=== PATIENT | male | born 1950 | race Caucasian/White ===

== ENCOUNTER 2021-01-17 12:08 | Emergency (ER) | payer MEDICARE, OTHER ==
[~2021-01-17] VITALS: Ht 185.4 cm; Wt 136.4 kg
[~2021-01-17 12:08] MED LIST: ATOR40TA PO; CLE150C PO; ENOX120D SQ; EZET10TA6 PO; FENO145T38 PO; FURO20TA4; LACTC PO; LANTUS SQ; LINA1TAB5 PO; OXYB5TAB16 PO; PHEN-887 PO; PIOG45TA65; RAMI5CAP65 PO; SPIR1TAB PO; WARF-113 PO
[2021-01-17 12:47] VITALS: BP 136/69
[2021-01-17] MEDS ORDERED: orphenadrine citrate 60mg/2ml inj. IM ONE (14:40)
[2021-01-17] MEDS ORDERED: ketorolac tromethamine 15mg/ml inj. IM ONE (14:40)
== END 2021-01-17 15:13 | disposition home or self-care (01) ==
LOC: ER 12:09
DX: M54.5 Low back pain (principal); G89.29 Other chronic pain; E78.00 Pure hypercholesterolemia, unspecified; E11.9 Type 2 diabetes mellitus without complications; Z87.440 Personal history of urinary (tract) infections; Z86.718 Personal history of other venous thrombosis and embolism; Z98.890 Other specified postprocedural states; Z88.5 Allergy status to narcotic agent; Z88.8 Allergy status to other drugs, medicaments and biological substances; Z79.2 Long term (current) use of antibiotics; Z79.4 Long term (current) use of insulin; Z79.899 Other long term (current) drug therapy
CPT/HCPCS: 96372; 99284; J1885; J2360

== ENCOUNTER 2021-07-17 11:51 | Emergency (ER) | payer BC, MEDICARE, OTHER ==
[~2021-07-17] VITALS: Ht 185.4 cm; Wt 136.3 kg
[2021-07-17 12:11] VITALS: BP 140/70
[2021-07-17 13:03] LABS: D-DIMER 0.79 MG/L FEU (0-0.50)
[2021-07-17 15:06] LABS: ALBUMIN 3.1 G/DL (3.4-5.0); ANION GAP 8 (8-16); BLOOD UREA NITROGEN 14 MG/DL (7-18); BUN/CREATININE RATIO 15.6 (5.4-32.0); CALCIUM 8.4 MG/DL (8.5-10.1); CHLORIDE 110 MMOL/L (99-107); GLUCOSE 120 MG/DL (70-104); POTASSIUM 4.2 MMOL/L (3.5-5.1); SODIUM 144 MMOL/L (135-145); TOTAL CARBON DIOXIDE 26.1 MMOL/L (24-32); eGFR 83 ML/MIN
[2021-07-17 15:11] LABS: PARTIAL THROMBOPLASTIN TIME 26 SECONDS (22-32)
[2021-07-17 15:18] LABS: MEAN PLATELET VOLUME 9.6 FL (7.4-10.4); MONOCYTES # (AUTO) 0.4 X10'3 (0-0.9)
[2021-07-17 15:20] LABS: BASOPHILS % (AUTO) 0.3 % (0-1); EOSINOPHILS # (AUTO) 0.1 X10'3 (0-0.9); EOSINOPHILS % (AUTO) 1.7 % (0-6); HEMATOCRIT 41.5 % (42.0-52.0); HEMOGLOBIN 13.4 g/dl (14.0-17.9); LYMPHOCYTES # (AUTO) 1.9 X10'3 (1.1-4.8); LYMPHOCYTES % (AUTO) 28.3 % (21-51); MEAN CORPUSCULAR HEMOGLOBIN 30.7 PG (27.0-31.0); MEAN CORPUSCULAR HGB CONC 32.2 g/dL (33.0-36.5); MEAN CORPUSCULAR VOLUME 95.3 FL (78-98); MONOCYTES % (AUTO) 6.5 % (2-12); NEUTROPHILS # (AUTO) 4.3 X10'3 (1.8-7.7); NEUTROPHILS % (AUTO) 63.2 % (42-75); PLATELET COUNT 198 X10'3 (140-440); RED BLOOD COUNT 4.35 X10'6 (4.70-6.10); RED CELL DISTRIBUTION WIDTH 14.9 % (11.5-14.5); WHITE BLOOD COUNT 6.8 X10'3 (4.5-11.0)
[2021-07-17] MEDS ORDERED: IBUP-1984 PO (20:07)
== END 2021-07-17 20:14 | disposition home or self-care (01) ==
LOC: ER 11:54
DX: M25.511 Pain in right shoulder (principal); R60.0 Localized edema; E78.00 Pure hypercholesterolemia, unspecified; E11.9 Type 2 diabetes mellitus without complications; G89.29 Other chronic pain; M54.9 Dorsalgia, unspecified; Z88.8 Allergy status to other drugs, medicaments and biological substances; Z88.5 Allergy status to narcotic agent; Z79.899 Other long term (current) drug therapy
CPT/HCPCS: 36415; 73030; 80048; 85025; 85379; 85610; 85730; 93970; 93971; 99285

== ENCOUNTER 2022-05-11 13:37 | Emergency (ER) | payer BC ==
--- NOTE | 2022-05-11 14:34 | NUR ---
PT BIB EMS DUE TO NOT BEING ABLE TO GET INTO HIS TRUCK AFTER A 2 FT FALL. PT HAS NO COMPLAINTS, DOES NOT WANT TO BE SEEN, REFUSES TO BE TRIAGED. FAMILY IS COMING TO TRANSPORT PT HOME.
== END 2022-05-11 15:33 | disposition left against medical advice (07) ==
LOC: ER 13:37
DX: M54.9 Dorsalgia, unspecified (principal); Z53.21 Procedure and treatment not carried out due to patient leaving prior to being seen by health care provider

== ENCOUNTER 2024-10-07 12:40 | Emergency (ER) | payer OTHER ==
[~2024-10-07] VITALS: Ht 185.4 cm; Wt 159.1 kg
[~2024-10-07 12:40] MED LIST changes: -OXYB5TAB16 PO; +OXYB5TAB21 PO; -RAMI5CAP65 PO; +RAMI5CAP71 PO
[2024-10-07 13:03] VITALS: TEMP 98.2
[2024-10-07 13:57] LABS: BILIRUBIN,URINE NEGATIVE (Neg); CLARITY,URINE CLOUDY (Clear); COLOR,URINE YELLOW (Yellow); GLUCOSE, URINE >=1000 mg/dl (Neg); KETONES,URINE NEGATIVE (Neg); LEUKOCYTE ESTERASE ,URINE MODERATE (Neg); NITRITES, URINE POSITIVE (Neg); OCCULT BLOOD,URINE MODERATE (Neg); PH,URINE 8.5 (4.8-8.0); PROTEIN,URINE >=300 mg/dl (Neg); UROBILINOGEN,URINE 0.2 E.U/dL (0.2-1.0)
[2024-10-07 14:02] LABS: UA COLLECTION TYPE FOLEY CATH
[2024-10-07 14:04] LABS: BACTERIA,URINE 4+ /HPF (Neg); WBC,URINE TNTC /HPF (0-4)
[2024-10-07 14:05] LABS: MUCUS STRANDS MODERATE /LPF (Neg); SQUAMOUS EPITHELIAL CELL,UR FEW /LPF (FEW); TRANSITIONAL EPI CELLS,URINE FEW /HPF
[2024-10-07] MEDS: CefTRIAXone 1000mg IM Kit (w/lidocaine diluent) IM ONE (14:57)
[2024-10-07 14:59] LABS: BASOPHILS % (AUTO) 0.3 % (0-1); EOSINOPHILS # (AUTO) 0.1 X10'3 (0-0.9); EOSINOPHILS % (AUTO) 0.5 % (0-6); HEMATOCRIT 41.8 % (42.0-52.0); HEMOGLOBIN 14.1 g/dl (14.0-17.9); LYMPHOCYTES # (AUTO) 2.1 X10'3 (1.1-4.8); LYMPHOCYTES % (AUTO) 14.1 % (21-51); MEAN CORPUSCULAR HEMOGLOBIN 30.1 PG (27.0-31.0); MEAN CORPUSCULAR HGB CONC 33.7 g/dL (33.0-36.5); MEAN CORPUSCULAR VOLUME 89.3 FL (78-98); MEAN PLATELET VOLUME 9.2 FL (7.4-10.4); MONOCYTES % (AUTO) 6.6 % (2-12); NEUTROPHILS # (AUTO) 11.8 X10'3 (1.8-7.7); NEUTROPHILS % (AUTO) 78.5 % (42-75); PLATELET COUNT 233 X10'3 (140-440); RED BLOOD COUNT 4.68 X10'6 (4.70-6.10)
[2024-10-07] MEDS: LIDOcaine 2% jelly 6ml syringe ***for topical use only MM ONE (15:07)
[2024-10-07 15:20] LABS: ALANINE AMINOTRANSFERASE 20 U/L (12-78); ALBUMIN 2.9 G/DL (3.4-5.0); ALBUMIN/GLOBULIN RATIO 0.7 (1.1-1.5); ALKALINE PHOSPHATASE 57 IU/L (46-116); ANION GAP 11 (8-16); ASPARTATE AMINO TRANSFERASE 19 U/L (10-37); BILIRUBIN,TOTAL 0.5 MG/DL (0.1-1.0); BLOOD UREA NITROGEN 11 MG/DL (7-18); BUN/CREATININE RATIO 10.7 (10.0-20.0); CALCIUM 8.8 MG/DL (8.5-10.1); CHLORIDE 102 MMOL/L (99-107); CREATININE 1.03 MG/DL (0.60-1.10); GLUCOSE 326 MG/DL (70-104); POTASSIUM 4.1 MMOL/L (3.5-5.1); SODIUM 136 MMOL/L (135-145); TOTAL CARBON DIOXIDE 23.3 MMOL/L (24-32); TOTAL PROTEIN 7.2 G/DL (6.4-8.2); eCRCL 69 ML/MIN; eGFR 70 ML/MIN
[2024-10-07] MEDS: LidoCAINE 2% Topical Jelly 11mL syringe (UROJET) MM ONE (15:27)
[2024-10-07] MEDS ORDERED: CEFU250T95 PO (15:30)
[2024-10-07 15:47] VITALS: BP 135/75; PULSE 92; RESP 18; O2SAT 97
== END 2024-10-07 16:23 | disposition home or self-care (01) ==
LOC: ER 12:41
DX: N39.0 Urinary tract infection, site not specified (principal); T83.098A Other mechanical complication of other urinary catheter, initial encounter; E11.9 Type 2 diabetes mellitus without complications; E78.00 Pure hypercholesterolemia, unspecified; Z88.5 Allergy status to narcotic agent; Z98.890 Other specified postprocedural states; Z79.4 Long term (current) use of insulin; Y92.89 Other specified places as the place of occurrence of the external cause
CPT/HCPCS: 36415; 51702; 80053; 81001; 85025; 87077; 87088; 87186; 96372; 99284; A4314; J0696; A4358; A5200; A6250

== ENCOUNTER 2024-10-13 15:48 | Inpatient (IN) | payer BC, OTHER ==
[~2024-10-13] VITALS: Ht 185.4 cm; Wt 136.4 kg
[~2024-10-13 15:48] MED LIST changes: +CEFU250T95 PO
[2024-10-13 16:22] LABS: BASOPHILS # (AUTO) 0.1 X10'3 (0-0.2); BASOPHILS % (AUTO) 0.6 % (0-1); EOSINOPHILS # (AUTO) 0.1 X10'3 (0-0.9); EOSINOPHILS % (AUTO) 0.9 % (0-6); HEMATOCRIT 46.5 % (42.0-52.0); HEMOGLOBIN 15.5 g/dl (14.0-17.9); LYMPHOCYTES # (AUTO) 3.3 X10'3 (1.1-4.8); LYMPHOCYTES % (AUTO) 27.3 % (21-51); MEAN CORPUSCULAR HEMOGLOBIN 29.2 PG (27.0-31.0); MEAN CORPUSCULAR HGB CONC 33.4 g/dL (33.0-36.5); MEAN CORPUSCULAR VOLUME 87.5 FL (78-98); MEAN PLATELET VOLUME 9.2 FL (7.4-10.4); MONOCYTES # (AUTO) 0.9 X10'3 (0-0.9); MONOCYTES % (AUTO) 7.4 % (2-12); NEUTROPHILS # (AUTO) 7.7 X10'3 (1.8-7.7); NEUTROPHILS % (AUTO) 63.8 % (42-75); PLATELET COUNT 221 X10'3 (140-440); RED BLOOD COUNT 5.32 X10'6 (4.70-6.10); RED CELL DISTRIBUTION WIDTH 14.8 % (11.5-14.5); WHITE BLOOD COUNT 12.1 X10'3 (4.5-11.0)
[2024-10-13 16:57] LABS: ALANINE AMINOTRANSFERASE 29 U/L (12-78); ALBUMIN 3.3 G/DL (3.4-5.0); ALBUMIN/GLOBULIN RATIO 0.6 (1.1-1.5); ALKALINE PHOSPHATASE 61 IU/L (46-116); ANION GAP 16 (8-16); ASPARTATE AMINO TRANSFERASE 31 U/L (10-37); BILIRUBIN,TOTAL 0.5 MG/DL (0.1-1.0); BLOOD UREA NITROGEN 13 MG/DL (7-18); BUN/CREATININE RATIO 8.6 (10.0-20.0); CALCIUM 8.5 MG/DL (8.5-10.1); CHLORIDE 96 MMOL/L (99-107); CREATININE 1.51 MG/DL (0.60-1.10); GLUCOSE 216 MG/DL (70-104); POTASSIUM 3.6 MMOL/L (3.5-5.1); SODIUM 136 MMOL/L (135-145); TOTAL CARBON DIOXIDE 24.1 MMOL/L (24-32); TOTAL PROTEIN 8.4 G/DL (6.4-8.2); eCRCL 47 ML/MIN; eGFR 45 ML/MIN
[2024-10-13 17:00] LABS: PRO BRAIN NATRIURETIC PEPTIDE 175 PG/ML (0-450)
[2024-10-13 20:50] LABS: BILIRUBIN,URINE NEGATIVE (Neg); CLARITY,URINE SLIGHTLY CLOUDY (Clear); COLOR,URINE YELLOW (Yellow); GLUCOSE, URINE NEGATIVE (Neg); KETONES,URINE NEGATIVE (Neg); LEUKOCYTE ESTERASE ,URINE NEGATIVE (Neg); NITRITES, URINE NEGATIVE (Neg); OCCULT BLOOD,URINE NEGATIVE (Neg); PH,URINE 5.5 (4.8-8.0); PROTEIN,URINE 30 mg/dl (Neg); UROBILINOGEN,URINE 0.2 E.U/dL (0.2-1.0)
[2024-10-13 20:55] LABS: UA COLLECTION TYPE NON-SPECIFIED
[2024-10-13 20:56] LABS: BACTERIA,URINE FEW /HPF (Neg); MUCUS STRANDS FEW /LPF (Neg); RBC,URINE NONE SEEN /HPF (0-2); SQUAMOUS EPITHELIAL CELL,UR FEW /LPF (FEW); WBC,URINE 0-4 /HPF (0-4)
[2024-10-13] MEDS: normal saline 1000ML IV soln IVB ONE (23:15)
[2024-10-13] MEDS: dexamethasone sod phosphate 10mg/ml inj IV STA (23:15)
[2024-10-13] MEDS ORDERED: mag hydrox/Alum hydrox/simeth 30ml oral suspension PO PRN (23:25)
[2024-10-13] MEDS ORDERED: magnesium sulf-water 4G/100mL 100 ML IV PRN (23:25)
[2024-10-13] MEDS ORDERED: acetaminophen 325mg tablet PO PRN ×2 (23:25)
[2024-10-13] MEDS ORDERED: potassium Cl 40MEQ/1/2NS 520ml 520 ML IV PRN (23:25)
[2024-10-13] MEDS ORDERED: magnesium hydroxide 30ml (MOM) UD suspension PO PRN (23:25)
[2024-10-13] MEDS ORDERED: potassium Cl 20 mEq SR tablet PO PRN (23:25)
[2024-10-13] MEDS ORDERED: ondansetron/PF 4mg/2ml inj IV PRN (23:25)
[2024-10-13] MEDS ORDERED: magnesium sulf-water 2g/50mL 50 ML IV PRN (23:25)
[2024-10-13] MEDS ORDERED: morphine 2 MG/ML inj. syringe IV PRN (23:25)
[2024-10-13 23:59] LABS: HEMOGLOBIN A1C 8.1 % (4.5-6.2)
[2024-10-14] VITALS (8 sets, daily range): BP systolic 126–142; BP diastolic 60–78; PULSE 89–108; RESP 16–18; TEMP 97.8–98.4; O2SAT 91–97
[2024-10-14] MEDS: normal saline 1000ml 1,000 ML IV SCH (00:47)
[2024-10-14] MEDS ORDERED: normal saline 1000ml 1,000 ML IV SCH (02:25)
[2024-10-14] MEDS ORDERED: glucagon, human recombinant 1mg kit SUBCUT PRN (02:25)
[2024-10-14] MEDS ORDERED: DEXTROSE 15 GM of carb/4 tabs (each vial/BOTTLE has 4 tablets) PO PRN ×2 (02:25)
[2024-10-14] MEDS ORDERED: dextrose 50%-water 50ml dispensing syringe IV PRN ×2 (02:25)
[2024-10-14 02:40] LABS: BASOPHILS % (AUTO) 0.1 % (0-1); EOSINOPHILS % (AUTO) 0.1 % (0-6); HEMATOCRIT 45.3 % (42.0-52.0); HEMOGLOBIN 14.9 g/dl (14.0-17.9); LYMPHOCYTES # (AUTO) 1.4 X10'3 (1.1-4.8); LYMPHOCYTES % (AUTO) 9.9 % (21-51); MEAN CORPUSCULAR HGB CONC 32.9 g/dL (33.0-36.5); MEAN CORPUSCULAR VOLUME 88.2 FL (78-98); MEAN PLATELET VOLUME 9.4 FL (7.4-10.4); MONOCYTES # (AUTO) 0.3 X10'3 (0-0.9); MONOCYTES % (AUTO) 1.9 % (2-12); NEUTROPHILS # (AUTO) 12.3 X10'3 (1.8-7.7); PLATELET COUNT 205 X10'3 (140-440); RED BLOOD COUNT 5.13 X10'6 (4.70-6.10)
[2024-10-14 02:51] LABS: ALANINE AMINOTRANSFERASE 23 U/L (12-78); ALBUMIN 3.1 G/DL (3.4-5.0); ALBUMIN/GLOBULIN RATIO 0.6 (1.1-1.5); ALKALINE PHOSPHATASE 61 IU/L (46-116); ANION GAP 11 (8-16); ASPARTATE AMINO TRANSFERASE 24 U/L (10-37); BILIRUBIN,TOTAL 0.5 MG/DL (0.1-1.0); BLOOD UREA NITROGEN 17 MG/DL (7-18); CALCIUM 7.9 MG/DL (8.5-10.1); CHLORIDE 98 MMOL/L (99-107); GLUCOSE 234 MG/DL (70-104); MAGNESIUM 1.2 MG/DL (1.5-2.4); POTASSIUM 3.8 MMOL/L (3.5-5.1); SODIUM 135 MMOL/L (135-145); eCRCL 42 ML/MIN; eGFR 39 ML/MIN
[2024-10-14] MEDS: nystatin 15 GM powder TP SCH (07:54)
[2024-10-14] MEDS: heparin, porcine 5000 units/ml vial SQ SCH (07:55)
[2024-10-14] MEDS: CefTRIAXone/D5W-Rocephin 1gm 50 ML IV SCH (07:57)
[2024-10-14] MEDS: docusate sod 100mg capsule PO SCH (08:00)
[2024-10-14] MEDS: insulin glargine (Lantus) pen - multi-dose SQ ONE (11:23)
[2024-10-14] MEDS: INSULIN LISPRO 100 UNIT/ML INSULN.PEN MULTI-DOSE SQ SCH ×2 (11:25→14:11)
[2024-10-14] MEDS ORDERED: LOSA50TA64 PO (18:52)
[2024-10-14] MEDS ORDERED: TORS20TA3 PO (18:52)
[2024-10-14] MEDS ORDERED: METF-900 PO (18:52)
[2024-10-14] MEDS ORDERED: ROSU40TA89 PO (18:52)
[2024-10-14] MEDS ORDERED: POTA-192 PO (18:52)
[2024-10-14] MEDS ORDERED: CALC0.2536 PO (18:52)
[2024-10-14] MEDS ORDERED: TROS20TA4 PO (18:52)
[2024-10-14] MEDS ORDERED: GABA-530 PO (18:52)
[2024-10-14] MEDS ORDERED: POTA10CA95 PO (18:52)
[2024-10-14] MEDS ORDERED: GLIM4TAB7 PO (18:52)
[2024-10-14] MEDS ORDERED: insulin glargine (Lantus) pen - multi-dose SQ SCH ×2 (20:00→21:00)
[2024-10-14] MEDS: HYDROcodone/acetaminophen 5mg/325mg tablet PO ONE (21:02)
[2024-10-14] MEDS: insulin glargine (Lantus) pen - multi-dose SQ SCH (21:19)
[2024-10-15 05:29] LABS: BASOPHILS % (AUTO) 0.1 % (0-1); EOSINOPHILS % (AUTO) 0.1 % (0-6); HEMATOCRIT 38.1 % (42.0-52.0); HEMOGLOBIN 12.5 g/dl (14.0-17.9); LYMPHOCYTES # (AUTO) 2.1 X10'3 (1.1-4.8); LYMPHOCYTES % (AUTO) 13.8 % (21-51); MEAN CORPUSCULAR HEMOGLOBIN 28.9 PG (27.0-31.0); MEAN CORPUSCULAR HGB CONC 32.7 g/dL (33.0-36.5); MEAN CORPUSCULAR VOLUME 88.4 FL (78-98); MEAN PLATELET VOLUME 9.5 FL (7.4-10.4); MONOCYTES # (AUTO) 0.9 X10'3 (0-0.9); MONOCYTES % (AUTO) 6.1 % (2-12); NEUTROPHILS # (AUTO) 12.3 X10'3 (1.8-7.7); NEUTROPHILS % (AUTO) 79.9 % (42-75); PLATELET COUNT 179 X10'3 (140-440); RED BLOOD COUNT 4.32 X10'6 (4.70-6.10); RED CELL DISTRIBUTION WIDTH 14.8 % (11.5-14.5); WHITE BLOOD COUNT 15.3 X10'3 (4.5-11.0)
[2024-10-15] MEDS: K and/or MAG REPLACEMENT MC SCH (05:45)
[2024-10-15 05:49] LABS: ANION GAP 8 (8-16); CALCIUM 7.4 MG/DL (8.5-10.1); CHLORIDE 104 MMOL/L (99-107); CREATININE 1.24 MG/DL (0.60-1.10); GLUCOSE 243 MG/DL (70-104); MAGNESIUM 1.3 MG/DL (1.5-2.4); POTASSIUM 3.6 MMOL/L (3.5-5.1); SODIUM 139 MMOL/L (135-145); TOTAL CARBON DIOXIDE 27.5 MMOL/L (24-32); eCRCL 57 ML/MIN; eGFR 57 ML/MIN
[2024-10-15 05:50] LABS: ALANINE AMINOTRANSFERASE 18 U/L (12-78); ALBUMIN 2.5 G/DL (3.4-5.0); ALBUMIN/GLOBULIN RATIO 0.6 (1.1-1.5); ALKALINE PHOSPHATASE 48 IU/L (46-116); ASPARTATE AMINO TRANSFERASE 17 U/L (10-37); BILIRUBIN,TOTAL 0.3 MG/DL (0.1-1.0); TOTAL PROTEIN 6.5 G/DL (6.4-8.2)
[2024-10-15 06:00] VITALS: BP 143/66; PULSE 74; RESP 20; TEMP 97.1; O2SAT 90
[2024-10-15 06:16] LABS: BLOOD UREA NITROGEN 21 MG/DL (7-18); BUN/CREATININE RATIO 16.9 (10.0-20.0)
[2024-10-15 08:00] VITALS: RESP 16; O2SAT 90
[2024-10-15] MEDS ORDERED: insulin glargine (Lantus) VIAL- multi-dose SQ SCH (08:55)
[2024-10-15 10:00] VITALS: BP 123/60; PULSE 87; RESP 16; TEMP 97.7; O2SAT 97
[2024-10-15] MEDS ORDERED: warfarin 5mg tablet PO SCH (13:05)
[2024-10-15] MEDS: INSULIN LISPRO 100 UNIT/ML INSULN.PEN MULTI-DOSE SQ SCH ×2 (13:13→13:14)
[2024-10-15 14:05] LABS: INR 1.1 INR
[2024-10-15 14:11] LABS: PROTHROMBIN TIME 11.1 SECONDS (9.0-12.0)
[2024-10-15 18:30] VITALS: BP 131/66; PULSE 78; RESP 16; TEMP 98.2; O2SAT 97
[2024-10-15] MEDS: atorvastatin 20mg tablet PO SCH (21:25)
[2024-10-15] MEDS: warfarin 5mg tablet PO ONE (21:27)
[2024-10-15] MEDS: insulin glargine (Lantus) pen - multi-dose SQ SCH (21:33)
[2024-10-15 22:00] VITALS: BP 132/58; PULSE 78; RESP 16; TEMP 98.1; O2SAT 97
[2024-10-15 23:26] LABS: BILIRUBIN,URINE NEGATIVE (Neg); CLARITY,URINE CLEAR (Clear); COLOR,URINE YELLOW (Yellow); GLUCOSE, URINE NEGATIVE (Neg); KETONES,URINE NEGATIVE (Neg); LEUKOCYTE ESTERASE ,URINE NEGATIVE (Neg); NITRITES, URINE NEGATIVE (Neg); OCCULT BLOOD,URINE NEGATIVE (Neg); PH,URINE 6.5 (4.8-8.0); PROTEIN,URINE TRACE mg/dl (Neg); UROBILINOGEN,URINE 0.2 E.U/dL (0.2-1.0)
[2024-10-15 23:43] LABS: TOTAL PROTEIN,URINE RANDOM 43.3 MG/DL
[2024-10-15 23:51] LABS: UA COLLECTION TYPE FOLEY CATH
[2024-10-15 23:52] LABS: BACTERIA,URINE 1+ /HPF (Neg); RBC,URINE NONE SEEN /HPF (0-2); SQUAMOUS EPITHELIAL CELL,UR FEW /LPF (FEW); WBC,URINE 0-4 /HPF (0-4)
[2024-10-15 23:59] LABS: UA EOSINOPHILS NO EOS /HPF
[2024-10-16 05:46] LABS: BASOPHILS % (AUTO) 0.3 % (0-1); EOSINOPHILS # (AUTO) 0.1 X10'3 (0-0.9); EOSINOPHILS % (AUTO) 1.3 % (0-6); HEMATOCRIT 37.2 % (42.0-52.0); HEMOGLOBIN 12.3 g/dl (14.0-17.9); LYMPHOCYTES # (AUTO) 3.3 X10'3 (1.1-4.8); LYMPHOCYTES % (AUTO) 30.4 % (21-51); MEAN CORPUSCULAR HEMOGLOBIN 29.6 PG (27.0-31.0); MEAN CORPUSCULAR HGB CONC 33.1 g/dL (33.0-36.5); MEAN CORPUSCULAR VOLUME 89.5 FL (78-98); MEAN PLATELET VOLUME 9.7 FL (7.4-10.4); MONOCYTES # (AUTO) 0.9 X10'3 (0-0.9); MONOCYTES % (AUTO) 8.8 % (2-12); NEUTROPHILS # (AUTO) 6.4 X10'3 (1.8-7.7); NEUTROPHILS % (AUTO) 59.2 % (42-75); PLATELET COUNT 167 X10'3 (140-440); RED BLOOD COUNT 4.16 X10'6 (4.70-6.10); RED CELL DISTRIBUTION WIDTH 14.9 % (11.5-14.5); WHITE BLOOD COUNT 10.8 X10'3 (4.5-11.0)
[2024-10-16 05:55] LABS: INR 1.1 INR
[2024-10-16 06:00] VITALS: BP 129/60; PULSE 71; RESP 16; TEMP 97.8; O2SAT 96
[2024-10-16 06:02] LABS: ALANINE AMINOTRANSFERASE 20 U/L (12-78); ALBUMIN 2.7 G/DL (3.4-5.0); ALBUMIN/GLOBULIN RATIO 0.7 (1.1-1.5); ALKALINE PHOSPHATASE 41 IU/L (46-116); ANION GAP 5 (8-16); ASPARTATE AMINO TRANSFERASE 12 U/L (10-37); BILIRUBIN,TOTAL 0.2 MG/DL (0.1-1.0); BLOOD UREA NITROGEN 16 MG/DL (7-18); BUN/CREATININE RATIO 15.8 (10.0-20.0); CALCIUM 7.7 MG/DL (8.5-10.1); CHLORIDE 107 MMOL/L (99-107); CREATININE 1.01 MG/DL (0.60-1.10); GLUCOSE 220 MG/DL (70-104); MAGNESIUM 1.4 MG/DL (1.5-2.4); POTASSIUM 3.4 MMOL/L (3.5-5.1); SODIUM 141 MMOL/L (135-145); TOTAL CARBON DIOXIDE 29.3 MMOL/L (24-32); TOTAL PROTEIN 6.4 G/DL (6.4-8.2); eCRCL 70 ML/MIN; eGFR 72 ML/MIN
[2024-10-16] MEDS: magnesium Cl slow-release 64mg tablet PO PRN (09:54)
[2024-10-16] MEDS: potassium Cl 20 mEq SR tablet PO PRN (09:54)
[2024-10-16 10:00] VITALS: BP 136/66; PULSE 73; RESP 21; TEMP 97.3; O2SAT 97
[2024-10-16] MEDS ORDERED: potassium Cl 20 mEq SR tablet PO STA (12:06)
[2024-10-16] MEDS ORDERED: CEFD300C3 PO (13:38)
[2024-10-16] MEDS ORDERED: LACT1CAP26 PO (13:38)
[2024-10-16] MEDS: potassium Cl 20 mEq SR tablet PO ONE (14:35)
== END 2024-10-16 16:00 | disposition home health service (06) | DRG 698 ==
LOC: ER 15:48 → ED HOLD 23:28 → ORTHO 4S 10-14 03:15
PROVIDERS: ADMIT Internal Medicine Pulmonary Disease; ATTEND Family Medicine
DX: T83.518A Infection and inflammatory reaction due to other urinary catheter, initial encounter (principal); A41.9 Sepsis, unspecified organism; N17.0 Acute kidney failure with tubular necrosis; N39.0 Urinary tract infection, site not specified; B37.2 Candidiasis of skin and nail; Z20.822 Contact with and (suspected) exposure to COVID-19; E11.9 Type 2 diabetes mellitus without complications; E78.00 Pure hypercholesterolemia, unspecified; E86.0 Dehydration; J02.9 Acute pharyngitis, unspecified; Z79.4 Long term (current) use of insulin; Z79.899 Other long term (current) drug therapy; Z88.5 Allergy status to narcotic agent; Y84.6 Urinary catheterization as the cause of abnormal reaction of the patient, or of later complication, without mention of misadventure at the time of the procedure; Y92.9 Unspecified place or not applicable
CPT/HCPCS: 36415; 71045; 74176; 80053; 81001; 82570; 82948; 83036; 83605; 83735; 83880; 83930; 83935; 84156; 84300; 84484; 85025; 85610; 87081; 87207; 87324; 87449; 87502; 87503; 87811; 93005; 97116; 97161; 97530; 99285; A5200; A6213; A6250; A6258; A6449; G0378; J0696; J1100; J1644; J1815; J7030

== ENCOUNTER 2024-12-18 13:38 | Emergency (ER) | payer BC, OTHER ==
[~2024-12-18] VITALS: Ht 185.4 cm; Wt 136.4 kg
[~2024-12-18 13:38] MED LIST changes: -ATOR40TA PO; +CALC0.2536 PO; -CEFU250T95 PO; -CLE150C PO; -ENOX120D SQ; -EZET10TA6 PO; -FURO20TA4; +GABA-530 PO; +GLIM4TAB7 PO; +LACT1CAP26 PO; -LINA1TAB5 PO; +LOSA50TA64 PO; +METF-900 PO; +POTA-192 PO; -RAMI5CAP71 PO; +ROSU40TA89 PO; -SPIR1TAB PO; +TORS20TA3 PO; +TROS20TA4 PO; -WARF-113 PO
[2024-12-18 13:43] VITALS: TEMP 97.6
[2024-12-18 17:26] LABS: BILIRUBIN,URINE NEGATIVE (Neg); CLARITY,URINE CLOUDY (Clear); COLOR,URINE YELLOW (Yellow); GLUCOSE, URINE NEGATIVE (Neg); KETONES,URINE TRACE mg/dl (Neg); LEUKOCYTE ESTERASE ,URINE SMALL (Neg); NITRITES, URINE POSITIVE (Neg); OCCULT BLOOD,URINE TRACE-INTACT (Neg); PROTEIN,URINE 100 mg/dl (Neg); UROBILINOGEN,URINE 0.2 E.U/dL (0.2-1.0)
[2024-12-18 18:02] LABS: UA COLLECTION TYPE FOLEY CATH
[2024-12-18 18:07] LABS: AMORPHOUS PHOSPHATES 3+; BACTERIA,URINE 3+ /HPF (Neg); RBC,URINE 0-2 /HPF (0-2); SQUAMOUS EPITHELIAL CELL,UR FEW /LPF (FEW); WBC,URINE TNTC /HPF (0-4)
[2024-12-18 18:08] LABS: TRIPLE PHOSPHATE CRYST 1+ /HPF (NEGATIVE)
[2024-12-18 18:18] LABS: BASOPHILS % (AUTO) 0.2 % (0-1); EOSINOPHILS # (AUTO) 0.1 X10'3 (0-0.9); EOSINOPHILS % (AUTO) 1.3 % (0-6); HEMATOCRIT 42.3 % (42.0-52.0); HEMOGLOBIN 13.8 g/dl (14.0-17.9); LYMPHOCYTES # (AUTO) 2.7 X10'3 (1.1-4.8); LYMPHOCYTES % (AUTO) 25.4 % (21-51); MEAN CORPUSCULAR HEMOGLOBIN 29.1 PG (27.0-31.0); MEAN CORPUSCULAR HGB CONC 32.7 g/dL (33.0-36.5); MEAN CORPUSCULAR VOLUME 88.9 FL (78-98); MEAN PLATELET VOLUME 8.8 FL (7.4-10.4); MONOCYTES # (AUTO) 0.9 X10'3 (0-0.9); MONOCYTES % (AUTO) 8.1 % (2-12); PLATELET COUNT 218 X10'3 (140-440); RED BLOOD COUNT 4.75 X10'6 (4.70-6.10); RED CELL DISTRIBUTION WIDTH 15.5 % (11.5-14.5); WHITE BLOOD COUNT 10.7 X10'3 (4.5-11.0)
[2024-12-18 18:22] LABS: ALBUMIN 3.1 G/DL (3.4-5.0); ANION GAP 9 (8-16); BLOOD UREA NITROGEN 12 MG/DL (7-18); BUN/CREATININE RATIO 12.9 (10.0-20.0); CALCIUM 8.7 MG/DL (8.5-10.1); CHLORIDE 109 MMOL/L (99-107); CREATININE 0.93 MG/DL (0.60-1.10); GLUCOSE 86 MG/DL (70-104); MAGNESIUM 1.6 MG/DL (1.5-2.4); POTASSIUM 3.4 MMOL/L (3.5-5.1); SODIUM 144 MMOL/L (135-145); TOTAL CARBON DIOXIDE 26.3 MMOL/L (24-32); eCRCL 76 ML/MIN; eGFR 79 ML/MIN
[2024-12-18] MEDS ORDERED: CEPH-585 PO (19:07)
[2024-12-18] MEDS ORDERED: PHEN-716 PO (19:07)
[2024-12-18] MEDS: LidoCAINE 2% Topical Jelly 11mL syringe (UROJET) TOP ONE (19:10)
[2024-12-18] MEDS: phenazopyridine 100mg tablet PO ONE (19:27)
[2024-12-18] MEDS: CefTRIAXone 1000mg IM Kit (w/lidocaine diluent) IM ONE (19:27)
[2024-12-18 20:29] VITALS: BP 149/79; PULSE 81; RESP 17; O2SAT 95
== END 2024-12-18 21:01 | disposition home or self-care (01) ==
LOC: ER 13:39
DX: N39.0 Urinary tract infection, site not specified (principal); E11.9 Type 2 diabetes mellitus without complications; E78.00 Pure hypercholesterolemia, unspecified; G89.29 Other chronic pain; D64.9 Anemia, unspecified; Z86.718 Personal history of other venous thrombosis and embolism; Z90.49 Acquired absence of other specified parts of digestive tract; Z88.8 Allergy status to other drugs, medicaments and biological substances; Z88.5 Allergy status to narcotic agent; Z79.899 Other long term (current) drug therapy; Z79.4 Long term (current) use of insulin
CPT/HCPCS: 36415; 80048; 81001; 83605; 83735; 84145; 85025; 87040; 87088; 93005; 96372; 99284; J0696; 87077; 87186; A4338; A4340

== ENCOUNTER 2025-01-13 18:54 | Inpatient (IN) | payer BC, OTHER ==
[~2025-01-13] VITALS: Ht 185.4 cm; Wt 160.0 kg
[~2025-01-13 18:54] MED LIST changes: +PHEN-716 PO
--- NOTE | 2025-01-13 19:22 | ELECTROCARDIOGRAPH REPORT ---
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 Felipe Heredia Measurements Intervals Hood Rate: 92 P: -87 FL: 198 QRS: -62 QRSD: 167 T: 36 QT: 394 QTc: 488 Interpretive Statements Sinus or ectopic atrial rhythm RBBB and LAFB Electronically Signed On 01-13-2025 20:35:[address] Felipe Heredia Please click the below link to view image of tracing.
[2025-01-13 19:25] LABS: BASOPHILS % (AUTO) 0.5 % (0-1); EOSINOPHILS # (AUTO) 0.2 X10'3 (0-0.9); EOSINOPHILS % (AUTO) 2.6 % (0-6); HEMATOCRIT 41.1 % (42.0-52.0); HEMOGLOBIN 13.8 g/dl (14.0-17.9); LYMPHOCYTES # (AUTO) 2.2 X10'3 (1.1-4.8); LYMPHOCYTES % (AUTO) 23.7 % (21-51); MEAN CORPUSCULAR HEMOGLOBIN 29.1 PG (27.0-31.0); MEAN CORPUSCULAR HGB CONC 33.5 g/dL (33.0-36.5); MEAN CORPUSCULAR VOLUME 86.8 FL (78-98); MEAN PLATELET VOLUME 8.3 FL (7.4-10.4); MONOCYTES # (AUTO) 0.8 X10'3 (0-0.9); MONOCYTES % (AUTO) 8.2 % (2-12); PLATELET COUNT 195 X10'3 (140-440); RED BLOOD COUNT 4.74 X10'6 (4.70-6.10); RED CELL DISTRIBUTION WIDTH 14.8 % (11.5-14.5); WHITE BLOOD COUNT 9.2 X10'3 (4.5-11.0)
[2025-01-13 19:45] LABS: ALANINE AMINOTRANSFERASE 60 U/L (12-78); ALBUMIN 2.8 G/DL (3.4-5.0); ALBUMIN/GLOBULIN RATIO 0.7 (1.1-1.5); ALKALINE PHOSPHATASE 83 IU/L (46-116); ANION GAP 6 (8-16); ASPARTATE AMINO TRANSFERASE 43 U/L (10-37); BILIRUBIN,TOTAL 0.7 MG/DL (0.1-1.0); BLOOD UREA NITROGEN 14 MG/DL (7-18); BUN/CREATININE RATIO 14.1 (10.0-20.0); CALCIUM 8.8 MG/DL (8.5-10.1); CHLORIDE 103 MMOL/L (99-107); CREATININE 0.99 MG/DL (0.60-1.10); GLUCOSE 176 MG/DL (70-104); POTASSIUM 3.6 MMOL/L (3.5-5.1); PRO BRAIN NATRIURETIC PEPTIDE 125 PG/ML (0-450); SODIUM 139 MMOL/L (135-145); TOTAL CARBON DIOXIDE 30.1 MMOL/L (24-32); TOTAL PROTEIN 7.1 G/DL (6.4-8.2); eCRCL 72 ML/MIN; eGFR 73 ML/MIN
--- NOTE | 2025-01-13 20:10 | RADIOLOGY REPORT ---
Clinical History CP Comparison None Without Contrast MADISON REILLY, [id number] Technique: Single view portable semierect chest x-ray Findings: The study is obtained with inadequate inspiration, a factor that decreases the sensitivity of detecti ng bibasilar lung changes. The lungs are unremarkable. No pleural abnormality. Atherosclerotic calcification of thoracic aorta. The cardiomediastinal silhouette is otherwise unrem arkable for an AP view. No acute osseous abnormality. The imaged part of the upper abdomen is unremarkable. Impression: No evidence of acute cardiopulmonary disease This report was electronically signed by Belen Garza MD on 01/13/2025 8:06:23 PM.
[2025-01-13 21:19] LABS: BILIRUBIN,URINE NEGATIVE (Neg); CLARITY,URINE CLOUDY (Clear); COLOR,URINE YELLOW (Yellow); GLUCOSE, URINE 100 mg/dl (Neg); KETONES,URINE NEGATIVE (Neg); LEUKOCYTE ESTERASE ,URINE MODERATE (Neg); NITRITES, URINE POSITIVE (Neg); OCCULT BLOOD,URINE LARGE (Neg); PROTEIN,URINE 100 mg/dl (Neg)
[2025-01-13 21:22] LABS: UA COLLECTION TYPE FOLEY CATH
[2025-01-13 21:25] LABS: BACTERIA,URINE 2+ /HPF (Neg); MUCUS STRANDS FEW /LPF (Neg); RBC,URINE 50-100 /HPF (0-2); RENAL CELLS, URINE FEW /HPF; SQUAMOUS EPITHELIAL CELL,UR NONE SEEN /LPF (FEW); TRANSITIONAL EPI CELLS,URINE FEW /HPF; WBC,URINE TNTC /HPF (0-4)
[2025-01-13 21:26] LABS: WBC CLUMPS,URINE MODERATE /HPF (NEGATIVE)
--- NOTE | 2025-01-13 21:38 | Physician Documentation ---
History of Present Illness ~ Chief Complaint: Weakness Stated Complaint: UTI Time Seen by MD: 21:09 OK to notify your PCP?: Yes Primary Medical Doctor: PT DOES NOT WANT TO DISCLOSE PCP Source: patient Mode of Arrival: EMS Exam Limitations: no limitations HPI This is a 74-year-old male who comes in complaining of generalized weakness. I saw this gentleman with the beginning of the month on 12/18/2024 which was a pro ximally 26 days ago. The patient has a chronic indwelling Khan catheter in his wheelchair bound. The patient had heavy sediment in the Khan catheter tubing with the time in a very positive urinalysis. I placed him on antibiotics and discharge him home as at the time he seemed to well. The patient was states that is he had some issue picking up with the antibiotics due to insurance and did not get it until a few days ago. The patient now complains of generalized weakness to the point where he can not get up off the ground and had a call 911 to have EMS to help him come to the ER. You continues to complain of pain with urination though ascending the Khan catheter. He says it wallace when he urinates. He denies fevers, chills or flank pain though he was complaining of pain in his back which he states it is chronic from an old injury. Medication Reconciliation Allergies: Coded Allergies: menthol (Verified Allergy, Intermediate, RESPIRATORY DISTRESS, 10/13/24) codeine (Verified Allergy, Unknown, HIGH BLOOD PRESSURE AND HEADACHE, 10/13/24) morphine (Unverified Allergy, Unknown, 10/13/24) HALLUCINATIONS Scheduled Calcitriol (CALCITRIOL capsule), 1 CAP PO DAILY, (Reported) Fenofibrate Nanocrystallized* (Tricor*), 145 MG PO DAILY, (Reported) Gabapentin (Gabapentin), 1 CAP PO Q8H, (Reported) Glimepiride* (Amaryl*), 4 MG PO BID, (Reported) Insulin Glargine,Hum.rec.anlog* (Lantus*), 50 UNITS SQ HS, (Reported) Lactobacillus Acidophilus (ACIDOPHILUS capsule), 1 CAP PO DAILY Lactobacillus Rhamnosus (Culturelle), 1 CAP PO BID Losartan Potassium (Losartan Potassium), 1 TAB PO HS, (Reported) Oxybutynin Chloride (Oxybutynin Chloride), 1 TAB PO DAILY, (Reported) Phenazopyridine HCl (Phenazopyridine HCl), 200 MG PO TIDWM Phenazopyridine HCl (Pyridium), 1 TAB PO Q8H Potassium Chloride (Klor-Con), 1 TAB PO DAILY, (Reported) Rosuvastatin Calcium (Rosuvastatin Calcium), 1 TAB PO HS, (Reported) Torsemide (Torsemide), 1 TAB PO BID, (Reported) Trospium Chloride (Trospium Chloride), 1 TAB PO Q12H, (Reported) Scheduled PRN Metformin Hcl* (Metformin ER*), 2 TAB PO DAILY PRN for dinner, (Reported) Miscellaneous Medications Pioglitazone Hcl (Pioglitazone Hcl), (Reported) Past Medical History Past Medical History: High Cholesterol, GI Bleed, Anemia, UTI, Diabetes, Chronic Pain, Chronic Back Pain, Deep Vein Thrombosis Past Surgical History: cholecystectomy, orthopedic surgeries Patient History: (DM Type 2) Diabetes mellitus type 2 FATHER MOTHER Brother FH: stomach cancer MOTHER Alcohol Use: None Drug Use: none Lives with: Family Lives In: Home Occupation: retired Past Social History: Full CODE STATUS Physical Exam Vital Signs: Temperature: 98.2, Source: Temporal, Heart Rate: 85, Respiratory Rate: 25, BP: 140/71, Pulse Oximetry: 96, Weight: 160.000 Oxygen Flow Rate: 2.0 Pulse Oximetry Reflects: adequate oxygenation General Appearance: alert, WD/WN, ill-appearing Respiratory No accessory muscle use or retractions. Lungs are clear to auscultation all nash. Cardiovascular No rubs, gallops or murmurs. No peripheral edema, cyanosis or clubbing of the extremities Gastrointestinal No obvious distention. No tenderness to palpation x4 quadrants. Normoactive bowel sounds x4 quadrants. 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 II-XII nml as tested, normal hearing, normal speech Progress Results/Orders Reviewed/noted all lab results: Yes Results/Orders Orders - ELIDIA CHAN Ceftriaxone 2gm/D5w 50ml Bag (Rocephin 2 (01/13/25 21:30) Acetaminophen Iv (01/13/25 21:30) Normal Saline 1,000ml Iv Bolus (01/13/25 21:30) Vital Signs 01/13/25 01/13/25 19:11 19:45 Temp 98.2 Pulse 94 85 Resp 18 25 B/P (MAP) 126/78 140/71 (94) Pulse Ox 95 96 O2 Flow Rate 2.0 2.0 Laboratory Tests Test 01/13/25 19:15 01/13/25 21:07 White Blood Count 9.2 Red Blood Count 4.74 Hemoglobin 13.8 L Hematocrit 41.1 L Mean Corpuscular Volume 86.8 Mean Corpuscular Hemoglobin 29.1 Mean Corpuscular Hemoglobin Concent 33.5 Red Cell Distribution Width 14.8 H Platelet Count 195 Mean Platelet Volume 8.3 Neutrophils (%) (Auto) 65.0 Lymphocytes (%) (Auto) 23.7 Monocytes (%) (Auto) 8.2 Eosinophils (%) (Auto) 2.6 Basophils (%) (Auto) 0.5 Neutrophils # (Auto) 6.0 Lymphocytes # (Auto) 2.2 Monocytes # (Auto) 0.8 Eosinophils # (Auto) 0.2 Basophils # (Auto) 0.0 CBC Comment Sodium Level 139 Potassium Level 3.6 Chloride Level 103 Carbon Dioxide Level 30.1 Anion Gap 6 L Blood Urea Nitrogen 14 Creatinine 0.99 Estimated GFR/1.73 m2 73 BUN/Creatinine Ratio 14.1 Glucose Level 176 H Calcium Level 8.8 Total Bilirubin 0.7 Aspartate Amino Transf (AST/SGOT) 43 H Alanine Aminotransferase (ALT/SGPT) 60 Alkaline Phosphatase 83 Troponin I High Sensitivity 9 Pro-B-Type Natriuretic Peptide 125 Total Protein 7.1 Albumin 2.8 L Globulin 4.3 Albumin/Globulin Ratio 0.7 L Chemistry Comments Urine Specimen Description Khan cath Urine Color Yellow Urine Clarity Cloudy Urine pH 6.0 Urine Specific [place] 1.020 Urine Protein 100 H Urine Glucose (UA) 100 H Urine Ketones Negative Urine Occult Blood Large H Urine Nitrite Positive H Urine Bilirubin Negative Urine Urobilinogen 2.0 H Urine Leukocyte Esterase Moderate H Urine RBC 50-100 Urine WBC Tntc H Urine WBC Clumps Moderate Urine Squamous Epithelial Cells None seen Urine Transitional Epithelial Cells Few Urine Renal Cells Few Urine Bacteria 2+ Urine Mucus Few Urine Culture Indicated Indicated Volume Urine Centrifuged 8 ml Urine Comment Low volume EKG/XRAY/CT/US/VASC/MRI EKG : Intepreting Monitor?: No Additional Comment Twelve lead EKGs interpreted by me: Sinus or ectopic atrial rhythm rate of 92. 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 No ischemia Chest X-Ray : Interpreted By: self Views: 1 VIEW Additional Comments Chest x-ray one view was interpreted by me: No acute disease process. The cardiac silhouette and lung nash are within normal limits. No obvious bony abnormality. Soft tissues are unremarkable. Medical Decision Making Findings The patient was vital signs and lab work were all within normal limits. There was nothing to indicate sepsis at this time however his urinalysis isn't much over the last time and in some respects worse has not now that were protein in the urine which could indicate a pyelonephritis. The culture from last time grew out Proteus mirabilis susceptible to all antibiotics tested. I started the patient on 2 g Rocephin IV gave him a g of Tylenol IV as well as a L of fluids as the states he has not been eating or drinking very much. The patient was very weak and you going to believe this is attributed to his urinalysis. The patient did start on some oral antibiotics in his failed outpatient therapy. At this point the patient will require admission and I will contact the hospitalist for admission. Additional Information Urinary tract infection. Urosepsis. Generalized weakness. Departure Impression: Primary Impression: Urinary tract infection Additional Impressions: Pyelonephritis Generalized weakness Referrals: NO PRIMARY CARE PROVIDER (PCP) ELIDIA CHAN Jan 13, 2025 21:38
[2025-01-13] MEDS ORDERED: iohexol 300mg/ml 100ml inj. ONE (21:48)
[2025-01-13] MEDS ORDERED: magnesium Cl slow-release 64mg tablet PO PRN (22:00)
[2025-01-13] MEDS ORDERED: ondansetron/PF 4mg/2ml inj IV PRN (22:00)
[2025-01-13] MEDS ORDERED: morphine 2 MG/ML inj. syringe IV PRN ×2 (22:00)
[2025-01-13] MEDS ORDERED: potassium Cl 40MEQ/1/2NS 520ml 520 ML IV PRN (22:00)
[2025-01-13] MEDS ORDERED: potassium Cl 20 mEq SR tablet PO PRN (22:00)
[2025-01-13] MEDS ORDERED: magnesium hydroxide 30ml (MOM) UD suspension PO PRN (22:00)
[2025-01-13] MEDS ORDERED: mag hydrox/Alum hydrox/simeth 30ml oral suspension PO PRN (22:00)
[2025-01-13] MEDS ORDERED: magnesium sulf-water 2g/50mL 50 ML IV PRN (22:00)
[2025-01-13] MEDS ORDERED: magnesium sulf-water 4G/100mL 100 ML IV PRN (22:00)
[2025-01-13] MEDS: normal saline 1000ml 1,000 ML IV ONE (22:23)
[2025-01-13] MEDS: acetaminophen 1,000mg/100ml IV 100 ML IV ONE (22:23)
[2025-01-13] MEDS: CefTRIAXone 2gm/D5W 50ml BAG 50 ML IV ONE (23:25)
[2025-01-14] VITALS (10 sets, daily range): BP systolic 137–155; BP diastolic 63–71; PULSE 72–89; RESP 18–22; TEMP 97.8–98.4; O2SAT 94–98
[2025-01-14] MEDS ORDERED: dextrose 50%-water 50ml dispensing syringe IV PRN ×2 (00:45)
[2025-01-14] MEDS ORDERED: DEXTROSE 15 GM of carb/4 tabs (each vial/BOTTLE has 4 tablets) PO PRN ×2 (00:45)
[2025-01-14] MEDS ORDERED: glucagon, human recombinant 1mg kit SUBCUT PRN (00:45)
--- NOTE | 2025-01-14 01:06 | HISTORY AND PHYSICAL-Residence ---
History & Physical Providers to CC Resident Creating Document: MAHAD COUGHLIN CC: JACQUI NGUYEN MD ~ History of Present Illness Primary Medical Doctor: PT DOES NOT WANT TO DISCLOSE PCP Reason for Admit\Complaint: Generalized weakness History of Present Illness Patient is a 74-year-old male with history of type 2 diabetes, hypertension, hyperlipidemia, RADHA, chronic back pain and incontinence with long-term Khan catheter who came to the ED due to generalized weakness. Patient reports that for the past 3 weeks he has been experiencing increasing weakness, which has made it increasingly difficult to get out of his bed or recliner, he reports that today when trying to go from his bed to his recliner he fell on the floor and was unable to get up. In addition, patient reports increasing shortness of breath on exertion. Symptoms are accompanied by subjective fevers and chills. He reports that he has also been experiencing intermittent left-sided chest pain, which happens at on exertion and improves at rest, 9/10 in intensity, lasting 30 minutes to 2 hours at a time. Patient reports that he came to the hospital 3 weeks ago and he was prescribed antibiotics for an UTI, however, due to insurance issues he was not able to take them. Of note, patient has had a Khan catheter for a long time and he reports that it is not changed as often as it should. However, it was changed last time he was here in the hospital 3 weeks ago. Allergies: Coded Allergies: menthol (Verified Allergy, Intermediate, RESPIRATORY DISTRESS, 10/13/24) codeine (Verified Allergy, Unknown, HIGH BLOOD PRESSURE AND HEADACHE, 10/13/24) morphine (Unverified Allergy, Unknown, 10/13/24) HALLUCINATIONS Home Medications Home Medications Active Pyridium (Phenazopyridine HCl) 200 Mg Tablet 1 Tab PO Q8H 3 Days Culturelle (Lactobacillus Rhamnosus) 10 Billion Cell Capsule 1 Cap PO BID 30 Days ACIDOPHILUS capsule (Lactobacillus Acidophilus) 1 Cap Capsule 1 Cap PO DAILY 30 Days Phenazopyridine HCl 100 Mg Tablet 200 Mg PO TIDWM 5 Days Reported Gabapentin 100 Mg Capsule 1 Cap PO Q8H 30 Days CALCITRIOL capsule (Calcitriol) 0.25 Mcg Capsule 1 Cap PO DAILY 30 Days Trospium Chloride 20 Mg Tablet 1 Tab PO Q12H 30 Days Torsemide 20 Mg Tablet 1 Tab PO BID 30 Days Metformin ER* (Metformin HCl) 500 Mg Tab.sr.24h 2 Tab PO DAILY PRN Losartan Potassium 50 Mg Tablet 1 Tab PO HS 30 Days Rosuvastatin Calcium 40 Mg Tablet 1 Tab PO HS 30 Days Klor-Con (Potassium Chloride) 10 Meq Tab.prt.sr 1 Tab PO DAILY 30 Days Amaryl* (Glimepiride) 4 Mg Tablet 4 Mg PO BID Pioglitazone Hcl 45 Mg Tablet Lantus* (Insulin Glargine) 100 Unit/1 Ml Vial 50 Units SQ HS Tricor* (Fenofibrate) 145 Mg Tablet 145 Mg PO DAILY Oxybutynin Chloride 5 Mg Tablet 1 Tab PO DAILY 30 Days Past Medical History Past Medical History Type 2 diabetes, hypertension, hyperlipidemia, RADHA, chronic back pain and incontinence with long-term Khan catheter Past Surgical History Surgical History Comment Back surgery x4 (laminectomy) Cataracts Family History Family History: (DM Type 2) Diabetes mellitus type 2 FATHER MOTHER Brother FH: stomach cancer MOTHER Past Social History Smoking: Non-Smoker Alcohol Use: None Drug Use: None Lives with: Spouse Lives In: Home Occupation: retired Past Social History: Full CODE STATUS ROS ROS All systems were reviewed except for pertinent positives mentioned in HPI Musculoskeletal: Reports: back pain Exam Vitals: Vital Signs Date Time Temp Pulse Resp B/P (MAP) Pulse Ox O2 Delivery O2 Flow Rate FiO2 01/14/25 00:19 80 20 152/67 (95) 98 0 01/13/25 19:11 98.2 General: General: Obese habitus, awake, alert oriented to place, time, and person HEENT: No pallor present, no icterus, moist mucous membranes Neck: No masses and tenderness Resp: Unlabored. Lungs clear to auscultation bilaterally. Heart: Regular Rate and rhythm, normal S1 and S2 without murmur, rub or gallop Abdomen: Soft and with mild diffuse tenderness to palpation, no organomegaly, no guarding and rigidity, bowel sounds present Male genitalia: Khan catheter in place Neuro: No weakness in the upper and lower limb muscles, power of the muscles 3/5 bilateral upper and lower muscles, knee reflex present bilaterally. Cranial nerves intact Extremities: Chronic static changes in lower extremities. No cyanosis,clubbing or edema Skin: Warm and Dry. No lesions Diagnostic Data Last Recorded Lab Results: 01/14/25 0407 01/14/25 0407 Advance Care Planning Advanced Care plannin - 30 Minutes Additional Plan Patient is a 74-year-old male with history of type 2 diabetes, hypertension, hyperlipidemia, RADHA, chronic back pain and incontinence with long-term Khan catheter who came to the ED due to generalized weakness. Catheter associated UTI, POA Microscopic hematuria Proteinuria Possible diabetic nephropathy Patient has had a Khan catheter for a long time, apparently placed due to incontinence Has been experiencing increasing weakness and inability to walk White count is normal, will obtain procalcitonin UA shows significant amount of WBC, leukocyte esterase, nitrites, as well as hematuria and proteinuria BUN and creatinine unremarkable Culture from a few weeks ago showed pansensitive Proteus. Pending new culture Started on Rocephin in ED. Will continue Will obtain kidney ultrasound Chest pain Likely stable angina Troponins are unremarkable ProBNP is unremarkable EKG shows bundle branch block Will monitor Generalized weakness Severe deconditioning Patient will likely require rehab upon discharge PT eval and consult in place Type 2 diabetes Possible diabetic nephropathy A1c from 09/2024 was 8.1. Pending repeated Started on Lantus 10 units, lispro 2 units, low-dose supplemental. Adjust as necessary and/or according to home dose once med rec is completed Hypertension Hyperlipidemia Chronic back pain RADHA Continue home meds. Pending med rec Pain control with morphine p.r.n. Patient reports that he had palate surgery along with tonsillectomy and no longer requires CPAP Code Status: Full code DVT prophylaxis: Heparin Analgesia/sedation: Morphine Nutrition: Carb controlled PT: Ordered Prognosis: Guarded Disposition: Admit to ortho/neuro. Continue medical management Mahad Gore MD Internal Medicine Resident PGY-1 Date of Service: Jan 14, 2025 Billing Provider: JACQUI NGUYEN MD Common Visit Codes: [id number] INP/OBS CARE (HIGH) Assessment/Plan Assessment I evaluated the patient with the help of residents . Discussed the case with them. Reviewed notes by MAHAD Benavides. Agree with this assessment and plans. I also reviewed the patient's records, notes by other providers, radiology, and other labs. Patient currently has UTI likely secondary to a Proteus species based on prior cultures. Continue antibiotics as now. MAHAD COUGHLIN Jan 14, 2025 01:06 JACQUI NGUYEN MD Jan 14, 2025 05:40
[2025-01-14 04:48] LABS: BASOPHILS % (AUTO) 0.3 % (0-1); EOSINOPHILS # (AUTO) 0.2 X10'3 (0-0.9); EOSINOPHILS % (AUTO) 2.2 % (0-6); HEMATOCRIT 37.6 % (42.0-52.0); HEMOGLOBIN 12.4 g/dl (14.0-17.9); LYMPHOCYTES # (AUTO) 2.2 X10'3 (1.1-4.8); LYMPHOCYTES % (AUTO) 21.4 % (21-51); MEAN CORPUSCULAR HEMOGLOBIN 28.8 PG (27.0-31.0); MEAN CORPUSCULAR HGB CONC 33.1 g/dL (33.0-36.5); MEAN PLATELET VOLUME 8.3 FL (7.4-10.4); MONOCYTES # (AUTO) 0.9 X10'3 (0-0.9); MONOCYTES % (AUTO) 9.1 % (2-12); NEUTROPHILS # (AUTO) 6.9 X10'3 (1.8-7.7); PLATELET COUNT 165 X10'3 (140-440); RED BLOOD COUNT 4.32 X10'6 (4.70-6.10); RED CELL DISTRIBUTION WIDTH 14.7 % (11.5-14.5); WHITE BLOOD COUNT 10.2 X10'3 (4.5-11.0)
[2025-01-14 05:14] LABS: ALANINE AMINOTRANSFERASE 52 U/L (12-78); ALBUMIN 2.4 G/DL (3.4-5.0); ALBUMIN/GLOBULIN RATIO 0.6 (1.1-1.5); ALKALINE PHOSPHATASE 69 IU/L (46-116); ANION GAP 4 (8-16); ASPARTATE AMINO TRANSFERASE 37 U/L (10-37); BILIRUBIN,TOTAL 0.5 MG/DL (0.1-1.0); BLOOD UREA NITROGEN 13 MG/DL (7-18); BUN/CREATININE RATIO 15.3 (10.0-20.0); CALCIUM 8.1 MG/DL (8.5-10.1); CHLORIDE 106 MMOL/L (99-107); CHOL/HDL RATIO 3.6 (0.00-4.99); CHOLESTEROL 125 MG/DL (0-200); CREATININE 0.85 MG/DL (0.60-1.10); GLUCOSE 117 MG/DL (70-104); HDL CHOLESTEROL 35 MG/DL (35-60); LDL CHOLESTEROL 75 MG/DL (50-100); MAGNESIUM 1.6 MG/DL (1.5-2.4); POTASSIUM 3.3 MMOL/L (3.5-5.1); SODIUM 141 MMOL/L (135-145); TOTAL CARBON DIOXIDE 30.8 MMOL/L (24-32); TOTAL PROTEIN 6.2 G/DL (6.4-8.2); TRIGLYCERIDES 85 MG/DL (20-135); eCRCL 84 ML/MIN; eGFR 88 ML/MIN
[2025-01-14 05:32] LABS: HEMOGLOBIN A1C 6.1 % (4.5-6.2)
[2025-01-14] MEDS: INSULIN LISPRO 100 UNIT/ML INSULN.PEN MULTI-DOSE SQ SCH (07:00)
[2025-01-14] MEDS: K and/or MAG REPLACEMENT MC SCH (08:00)
[2025-01-14] MEDS ORDERED: docusate sod 100mg capsule PO SCH (08:00)
[2025-01-14] MEDS ORDERED: INSULIN LISPRO 100 UNIT/ML INSULN.PEN MULTI-DOSE SQ SCH (09:00)
--- NOTE | 2025-01-14 09:04 | RADIOLOGY REPORT ---
INDICATION: Hematuria TECHNIQUE: Multiple real-time sonographic images of the kidneys and bladder were obtained. COMPARISON: None FINDINGS: Evaluation is extremely limited due to body habitus and obscuration from bowel gas. The right kidney measures 12.0 cm in length, which is normal in size. There is normal echogenicity of the right kidney. No hydronephrosis. Left kidney is not well visualized due to obscuration from bowel gas. IMPRESSION: Evaluation is extremely limited due to body habitus and obscuration from bowel gas.
[2025-01-14] MEDS ORDERED: CEFU500T66 PO (09:55)
[2025-01-14] MEDS ORDERED: SEMA2PEN SUBCUT (09:56)
[2025-01-14] MEDS ORDERED: TRAM50TA2 PO (09:57)
[2025-01-14] MEDS: potassium Cl 20 mEq SR tablet PO PRN (11:41)
[2025-01-14] MEDS: heparin, porcine 5000 units/ml vial SQ SCH (11:42)
[2025-01-14] MEDS ORDERED: insulin glargine (Lantus) pen - multi-dose SQ SCH (21:00)
--- NOTE | 2025-01-14 21:07 | PROGRESS NOTE ---
Daily Progress Note Providers to CC ~ Antibiotic Timeout Antibiotic Ordered?: Yes Subjective Patient is seen in presence of his both are very poor historian. Off and on patient gets pain over lower belly he has chronic catheter placed which is chronic no other concerns Objective Vital Signs Date Time Temp Pulse Resp B/P (MAP) Pulse Ox O2 Delivery O2 Flow Rate FiO2 01/14/25 15:52 98.2 87 19 147/71 (96) 98 Nasal Cannula 2.5 obtained kidney ultrasoundMPRESSION: Evaluation is extremely limited due to body habitus and obscuration from bowel gas. Result Diagram: 01/14/2540601/14/25406 General-patient not in any acute distress, alert awake oriented, chronically ill-appearing, morbidly obese HEENT-atraumatic normocephalic, neck supple without elevated JVD, no thyromegaly or carotid bruit. No lymphadenopathy bilaterally. Eyes-no icterus or pallor seen in eyes Chest-clear to auscultation bilaterally, breathing nonlabored no tachypnea, no wheezing, no crepitation, no crackles. Heart-S1-S2 normal, regular heart rate no murmur Abdomen bowel sounds positive on auscultation, soft nondistended nontender no guarding, no rigidity Genital-Khan catheter in place Skin no active skin rash Neurology-grossly intact, nonfocal alert awake oriented Extremity- no pedal edema able to move all 4 extremities Psychiatry - patient is not confused or agitated cooperated during physical examination Problem\Assessment\Plan Patient is a 74-year-old male with history of type 2 diabetes, hypertension, hyperlipidemia, RADHA, chronic back pain and incontinence with long-term Khan catheter who came to the ED due to generalized weakness. Catheter associated UTI, POA Microscopic hematuria Proteinuria Possible diabetic nephropathy Patient has had a Khan catheter for a long time, apparently placed due to incontinence Has been experiencing increasing weakness and inability to walk White count is normal, will obtain procalcitonin UA shows significant amount of WBC, leukocyte esterase, nitrites, as well as hematuria and proteinuria BUN and creatinine unremarkable Culture from a few weeks ago showed pansensitive Proteus. Started on Rocephin in ED. Will continue Chest pain Likely stable angina Troponins are unremarkable ProBNP is unremarkable EKG shows bundle branch block Will monitor Generalized weakness Severe deconditioning Patient will likely require rehab upon discharge PT eval and consult in place Type 2 diabetes Possible diabetic nephropathy A1c from 09/2024 was 8.1. Current hemoglobin A1c 6.1 On hypo and hyperglycemic protocol Hypertension Hyperlipidemia Chronic back pain RADHA Continue home meds. Pending med rec Pain control with morphine p.r.n. Patient reports that he had palate surgery along with tonsillectomy and no longer requires CPAP Code Status: Full code DVT prophylaxis: Heparin Analgesia/sedation: Morphine Nutrition: Carb controlled PT: Ordered Patient's current condition is guarded we will continue to follow patient in AM . Date of Service: Jan 14, 2025 Billing Provider: SHELBY VALDES MD Common Visit Codes: [id number] INP/OBS CARE(HIGH) SHELBY VALDES MD Jan 14, 2025 21:07
[2025-01-14] MEDS: CefTRIAXone 2gm/D5W 50ml BAG 50 ML IV SCH (22:30)
[2025-01-15 06:28] LABS: BASOPHILS % (AUTO) 0.4 % (0-1); EOSINOPHILS # (AUTO) 0.3 X10'3 (0-0.9); HEMATOCRIT 37.2 % (42.0-52.0); HEMOGLOBIN 12.3 g/dl (14.0-17.9); LYMPHOCYTES # (AUTO) 2.2 X10'3 (1.1-4.8); LYMPHOCYTES % (AUTO) 27.5 % (21-51); MEAN CORPUSCULAR HEMOGLOBIN 28.7 PG (27.0-31.0); MEAN CORPUSCULAR VOLUME 86.9 FL (78-98); MEAN PLATELET VOLUME 8.6 FL (7.4-10.4); MONOCYTES # (AUTO) 0.7 X10'3 (0-0.9); MONOCYTES % (AUTO) 9.4 % (2-12); NEUTROPHILS # (AUTO) 4.6 X10'3 (1.8-7.7); NEUTROPHILS % (AUTO) 58.7 % (42-75); PLATELET COUNT 177 X10'3 (140-440); RED BLOOD COUNT 4.28 X10'6 (4.70-6.10); RED CELL DISTRIBUTION WIDTH 14.9 % (11.5-14.5); WHITE BLOOD COUNT 7.9 X10'3 (4.5-11.0)
[2025-01-15 06:34] LABS: ALANINE AMINOTRANSFERASE 41 U/L (12-78); ALBUMIN 2.5 G/DL (3.4-5.0); ALBUMIN/GLOBULIN RATIO 0.6 (1.1-1.5); ALKALINE PHOSPHATASE 68 IU/L (46-116); ANION GAP 6 (8-16); ASPARTATE AMINO TRANSFERASE 26 U/L (10-37); BILIRUBIN,TOTAL 0.4 MG/DL (0.1-1.0); BLOOD UREA NITROGEN 10 MG/DL (7-18); BUN/CREATININE RATIO 12.7 (10.0-20.0); CALCIUM 8.7 MG/DL (8.5-10.1); CHLORIDE 108 MMOL/L (99-107); CREATININE 0.79 MG/DL (0.60-1.10); GLUCOSE 136 MG/DL (70-104); MAGNESIUM 1.6 MG/DL (1.5-2.4); POTASSIUM 3.6 MMOL/L (3.5-5.1); SODIUM 143 MMOL/L (135-145); TOTAL CARBON DIOXIDE 28.9 MMOL/L (24-32); TOTAL PROTEIN 6.5 G/DL (6.4-8.2); eCRCL 90 ML/MIN; eGFR > 90 ML/MIN
[2025-01-15 07:30] VITALS: BP 152/70; PULSE 74; RESP 15; TEMP 98.5; O2SAT 96
[2025-01-15] MEDS: losartan 50mg tablet PO SCH (08:15)
[2025-01-15 10:00] VITALS: BP 147/63; PULSE 70; RESP 18; TEMP 97; O2SAT 95
--- NOTE | 2025-01-15 13:05 | PROGRESS NOTE ---
Daily Progress Note Providers to CC ~ Antibiotic Timeout Antibiotic Ordered?: Yes If Yes, Indications: UTI Subjective No acute events overnight. Patient examined at bedside. No new complaints, not in acute distress. Patient denies chest pain, sob, palpitations, abdominal pain, n/v/d. Urine culture resulted for gram negative chandler, awaiting sensitivities. Vss, las unremarkable. Objective Vital Signs Date Time Temp Pulse Resp B/P (MAP) Pulse Ox O2 Delivery O2 Flow Rate FiO2 01/15/25 08:15 74 01/15/25 07:30 98.5 15 152/70 (97) 96 Nasal Cannula 3.0 Result Diagram: 01/15/2552401/15/25524 Physical Exam General: Generalized weakness, A&Ox 3, NAD, morbidly obese HEENT: Normocephalic, PERRLA Neck: Supple, trachea midline, no JVD Chest: Clear to auscultation bilaterally Cardiovascular: RRR, S1&S2 GI: Soft and nontender Extremities: No cyanosis/clubbing/or edema SAMPLE BUILDER: No focal deficits Musculoskeletal: No paraspinal muscle tenderness, no muscle spasm Skin: Warm and intact Problem\Assessment\Plan Patient is a 74-year-old male with history of type 2 diabetes, hypertension, hyperlipidemia, RADHA, chronic back pain and incontinence with long-term Khan catheter who came to the ED due to generalized weakness. # Catheter associated UTI- POA -chronic Khan catheter, incontinence; urologist at [facility] -urine culture positive for gram negative chandler, continued on Rocephin # Chest pain, likely stable angina -Troponins are unremarkable, pBNP is unremarkable, EKG unremarkable # Generalized weakness # Severe deconditioning -pending rehab # NIDDM -A1c from 09/2024 was 8.1. Current hemoglobin A1c 6.1 -on hypo and hyperglycemic protocol # Hypertension # Hyperlipidemia # Chronic back pain # RADHA -continue home med, prn analgesics -patient reports that he had palate surgery along with tonsillectomy and no longer requires CPAP Code Status: Full code DVT/VTE prophylaxis: Heparin Date of Service: January 15, 2025 Billing Provider: HANG DO Common Visit Codes: [id number] INP/OBS CARE(HIGH) HANG DO January 15, 2025 13:05
[2025-01-15] MEDS: aspirin 81mg, enteric-coated 1 TAB TABLET.DR PO ONE (14:31)
[2025-01-15] MEDS: losartan 50mg tablet PO ONE (14:33)
[2025-01-15 14:38] VITALS: RESP 18; O2SAT 95
[2025-01-15 18:30] VITALS: BP 116/59; PULSE 75; RESP 20; TEMP 97.2; O2SAT 96
[2025-01-15] MEDS: atorvastatin 20mg tablet PO SCH (20:53)
[2025-01-15 22:00] VITALS: BP 145/75; PULSE 78; RESP 18; TEMP 98.4; O2SAT 97
[2025-01-15] MEDS: acetaminophen 325mg tablet PO PRN (22:08)
[2025-01-16 04:46] LABS: BASOPHILS % (AUTO) 0.3 % (0-1); EOSINOPHILS # (AUTO) 0.4 X10'3 (0-0.9); EOSINOPHILS % (AUTO) 5.1 % (0-6); HEMOGLOBIN 12.7 g/dl (14.0-17.9); LYMPHOCYTES # (AUTO) 2.5 X10'3 (1.1-4.8); LYMPHOCYTES % (AUTO) 28.6 % (21-51); MEAN CORPUSCULAR HEMOGLOBIN 28.4 PG (27.0-31.0); MEAN CORPUSCULAR HGB CONC 32.5 g/dL (33.0-36.5); MEAN CORPUSCULAR VOLUME 87.4 FL (78-98); MEAN PLATELET VOLUME 8.8 FL (7.4-10.4); MONOCYTES # (AUTO) 0.8 X10'3 (0-0.9); MONOCYTES % (AUTO) 9.4 % (2-12); NEUTROPHILS # (AUTO) 4.9 X10'3 (1.8-7.7); NEUTROPHILS % (AUTO) 56.6 % (42-75); PLATELET COUNT 202 X10'3 (140-440); RED BLOOD COUNT 4.46 X10'6 (4.70-6.10); RED CELL DISTRIBUTION WIDTH 14.7 % (11.5-14.5); WHITE BLOOD COUNT 8.7 X10'3 (4.5-11.0)
[2025-01-16 05:12] LABS: ALANINE AMINOTRANSFERASE 40 U/L (12-78); ALBUMIN 2.8 G/DL (3.4-5.0); ALBUMIN/GLOBULIN RATIO 0.7 (1.1-1.5); ALKALINE PHOSPHATASE 67 IU/L (46-116); ANION GAP 8 (8-16); ASPARTATE AMINO TRANSFERASE 19 U/L (10-37); BILIRUBIN,TOTAL 0.3 MG/DL (0.1-1.0); BLOOD UREA NITROGEN 13 MG/DL (7-18); BUN/CREATININE RATIO 13.8 (10.0-20.0); CHLORIDE 105 MMOL/L (99-107); CREATININE 0.94 MG/DL (0.60-1.10); GLUCOSE 200 MG/DL (70-104); MAGNESIUM 1.6 MG/DL (1.5-2.4); POTASSIUM 3.5 MMOL/L (3.5-5.1); SODIUM 141 MMOL/L (135-145); TOTAL CARBON DIOXIDE 28.5 MMOL/L (24-32); TOTAL PROTEIN 7.1 G/DL (6.4-8.2); eCRCL 76 ML/MIN; eGFR 78 ML/MIN
[2025-01-16 06:00] VITALS: BP 149/71; PULSE 67; RESP 18; TEMP 97.8; O2SAT 99
[2025-01-16] MEDS: aspirin 81mg, enteric-coated 1 TAB TABLET.DR PO SCH (09:48)
[2025-01-16] MEDS: losartan 50mg tablet PO SCH (09:48)
[2025-01-16 10:00] VITALS: BP 144/66; PULSE 73; RESP 17; TEMP 98.2; O2SAT 96
[2025-01-16] MEDS ORDERED: insulin glargine (Lantus) VIAL- multi-dose SQ ONE (10:45)
[2025-01-16] MEDS: insulin glargine (Lantus) pen - multi-dose SQ ONE (10:50)
[2025-01-16 11:00] VITALS: RESP 18
--- NOTE | 2025-01-16 11:59 | DISCHARGE SUMMARY ---
Discharge Summary Providers to CC ~ Discharge Summary Admission Diagnosis: CATHETER ASSOCIATED UTI Hospital Course DATE OF ADMISSION: 01/13/25 DATE OF DISCHARGE: 01/16/25 Discharge Diagnosis\\Comment: Catheter associated UTI- POA Chest pain, likely stable angina Acute hypoxic respiratory failure- POA Severe deconditioning NIDDM Hypertension Hyperlipidemia Chronic back pain RADHA Generalized weakness Class III obesity Operations\\Procedures: None Consultants: None Complications: None Condition on DC: Stable for transfer Discharge Summary: History of Present Illness From H&P: "Patient is a 74-year-old male with history of type 2 diabetes, hypertension, hyperlipidemia, RADHA, chronic back pain and incontinence with long- term Khan catheter who came to the ED due to generalized weakness. Patient reports that for the past 3 weeks he has been experiencing increasing weakness, which has made it increasingly difficult to get out of his bed or recliner, he reports that today when trying to go from his bed to his recliner he fell on the floor and was unable to get up. In addition, patient reports increasing shortness of breath on exertion. Symptoms are accompanied by subjective fevers and chills. He reports that he has also been experiencing intermittent left- sided chest pain, which happens at on exertion and improves at rest, 9/10 in intensity, lasting 30 minutes to 2 hours at a time. Patient reports that he came to the hospital 3 weeks ago and he was prescribed antibiotics for an UTI, however, due to insurance issues he was not able to take them. Of note, patient has had a Khan catheter for a long time and he reports that it is not changed as often as it should. However, it was changed last time he was here in the hospital 3 weeks ago." Hospital Course Diagnostic findings were notable for urinalysis indicative of urinary tract infection. Pertinent negative findings were unremarkable renal ultrasound, negative chest x-ray, negative procal, leukocytosis, vss. Patient was treated with empirical antibiotics and intravenous fluids. Urine culture and sensitivity resulted and antibiotic regimen was changed accordingly. Patient did not experience further complications throughout the entire hospital stay. Patient was seen and examined on the day of discharge. All labs, diagnostic workups, discharge plan discussed with patient in details during visit before discharge. All questions and concerns answered to the best of my professional knowledge. Patient is to be discharged to rehab for continued management and to follow-up with PCP and his urologist at [facility]. 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
[2025-01-16] MEDS ORDERED: ciprofloxacin lact 400MG/200ML 200 ML IV ONE (12:00)
[2025-01-16] MEDS ORDERED: JUVEN Smoothie Arginine/Glut./Ca2+Bmb (Juven 19.3pkt) 240ml cup PO SCH (12:30)
[2025-01-16] MEDS ORDERED: ciprofloxacin lact 400MG/200ML 200 ML IV SCH (20:00)
[2025-01-17] MEDS ORDERED: insulin glargine (Lantus) pen - multi-dose SQ SCH (08:00)
== END 2025-01-16 12:15 | DRG 698 ==
LOC: ER 18:55 → ED HOLD 22:04 → EDBEDREQ 23:44 → ORTHO 4S 01-14 00:45
PROVIDERS: ADMIT Internal Medicine Critical Care Medicine; ATTEND Internal Medicine
DX: T83.511A Infection and inflammatory reaction due to indwelling urethral catheter, initial encounter (principal); J96.01 Acute respiratory failure with hypoxia; N12 Tubulo-interstitial nephritis, not specified as acute or chronic; Z68.42 Body mass index [BMI] 45.0-49.9, adult; I20.89 Other forms of angina pectoris; I10 Essential (primary) hypertension; G47.33 Obstructive sleep apnea (adult) (pediatric); Y84.6 Urinary catheterization as the cause of abnormal reaction of the patient, or of later complication, without mention of misadventure at the time of the procedure; G89.29 Other chronic pain; M54.9 Dorsalgia, unspecified; E66.813 Obesity, class 3; E78.00 Pure hypercholesterolemia, unspecified; E11.9 Type 2 diabetes mellitus without complications; Z88.5 Allergy status to narcotic agent; Z88.8 Allergy status to other drugs, medicaments and biological substances; Z79.84 Long term (current) use of oral hypoglycemic drugs; Z79.4 Long term (current) use of insulin; Z79.899 Other long term (current) drug therapy; Z86.718 Personal history of other venous thrombosis and embolism; Z90.49 Acquired absence of other specified parts of digestive tract; Y92.89 Other specified places as the place of occurrence of the external cause
CPT/HCPCS: 36415; 71045; 76770; 80053; 80061; 81001; 82948; 83036; 83735; 83880; 84145; 84484; 85025; 87077; 87081; 87088; 87186; 93005; 96365; 96368; 97110; 97161; 97530; 97535; 99285; A4314; A4340; A6250; G0378; J0131; J0696; J1644; J1815; J7030; Q9967

== ENCOUNTER 2025-01-21 21:10 | Emergency (ER) | payer BC ==
[~2025-01-21] VITALS: Ht 188 cm; Wt 149.6 kg
[~2025-01-21 21:10] MED LIST changes: +CEFU500T66 PO; +SEMA2PEN SUBCUT; +TRAM50TA2 PO
--- NOTE | 2025-01-21 21:24 | Physician Documentation ---
History of Present Illness ~ General Stated Complaint: SEE CHIEF Time Seen by MD: 21:13 Primary Medical Doctor: PT DOES NOT WANT TO DISCLOSE PCP History of Present Illness Initial Comments This is a 75-year-old gentleman who was sent to us from [facility] because they were suspect a pneumonia. It isn't clear exactly why pneumonia was suspected. The patient has no somatic complaints whatsoever. He specifically denies any fever, chills, chest pain, difficulty breathing, nausea, vomiting, diarrhea, ab dominal pain, cough, headaches, new rashes. No concern for tobacco, alcohol or or illicit substances use Medication Reconciliation Allergies: Coded Allergies: menthol (Verified Allergy, Intermediate, RESPIRATORY DISTRESS, 10/13/24) codeine (Verified Allergy, Unknown, HIGH BLOOD PRESSURE AND HEADACHE, 10/13/24) morphine (Unverified Allergy, Unknown, 10/13/24) HALLUCINATIONS Scheduled Aspirin (Aspirin), 1 TAB PO DAILY, (Reported) Calcitriol (CALCITRIOL capsule), 1 CAP PO DAILY, (Reported) Fenofibrate Nanocrystallized* (Tricor*), 145 MG PO DAILY, (Reported) Gabapentin (Gabapentin), 1 CAP PO Q8H, (Reported) Glimepiride* (Amaryl*), 2 MG PO DAILY, (Reported) Insulin Glargine,Hum.rec.anlog* (Lantus*), 5 UNITS SUBCUT DAILY, (Reported) Levofloxacin (Levofloxacin), 1 TAB PO DAILY, (Reported) Losartan Potassium* (Cozaar*), 4 TAB PO DAILY, (Reported) Oxybutynin Chloride (Oxybutynin Chloride), 1 TAB PO DAILY, (Reported) Phenazopyridine HCl (Phenazopyridine HCl), 200 MG PO TIDWM Phenazopyridine HCl (Pyridium), 1 TAB PO Q8H Potassium Chloride (Klor-Con), 1 TAB PO DAILY, (Reported) Prednisone* (Prednisone*), 8 TAB PO DAILY, (Reported) Rosuvastatin Calcium (Rosuvastatin Calcium), 1 TAB PO HS, (Reported) Semaglutide (Ozempic), 2 MG SUBCUT Q7D, (Reported) Torsemide (Torsemide), 1 TAB PO BID, (Reported) Trospium Chloride (Trospium Chloride), 1 TAB PO Q12H, (Reported) Scheduled PRN Acetaminophen (Tylenol), 2 TAB PO QID PRN PRN for pain or fever, (Reported) Bisacodyl (Dulcolax), 2 TAB PO Q24H PRN for constipation, (Reported) Bisacodyl (Bisacodyl), 1 SUPP RC Q24H PRN for constipation, (Reported) Mag Hydrox/Al Hydrox/Simeth* (Maalox Advanced Suspension*), 30 ML PO Q4H PRN for indigestion/dyspepsia, (Reported) Magnesium Hydroxide (Milk of Magnesia), 30 ML PO Q24H PRN for constipation, (Reported) Metformin Hcl* (Metformin ER*), 2 TAB PO DAILY PRN for dinner, (Reported) Na Phos,M-B/Na Phos,Di-Ba (Fleet Enema Extra), 1 DOSPAK RC Q24H PRN for constipation, (Reported) Ondansetron HCl (Ondansetron HCl), 1 TAB PO Q6H PRN PRN for nausea/vomiting, (Reported) Tramadol HCl (Tramadol HCl), 1 TAB PO TID PRN PRN for pain, (Reported) Miscellaneous Medications Insulin Lispro (Insulin Lispro), (Reported) Pioglitazone Hcl (Pioglitazone Hcl), (Reported) Discontinued Medications Cefuroxime Axetil (Cefuroxime), 1 TAB PO Q12H, (Reported) Discontinued Reason: patient no longer taking Glimepiride* (Amaryl*), 4 MG PO BID, (Reported) Discontinued Reason: patient no longer taking Insulin Glargine,Hum.rec.anlog* (Lantus*), 50 UNITS SQ HS, (Reported) Discontinued Reason: patient no longer taking Lactobacillus Acidophilus (ACIDOPHILUS capsule), 1 CAP PO DAILY Discontinued Reason: patient no longer taking Lactobacillus Rhamnosus (Culturelle), 1 CAP PO BID Discontinued Reason: patient no longer taking Losartan Potassium (Losartan Potassium), 1 TAB PO HS, (Reported) Discontinued Reason: patient no longer taking Potassium Chloride (Klor-Con), 1 TAB PO DAILY, (Reported) Discontinued Reason: patient no longer taking Past Medical History Past Medical History: High Cholesterol, GI Bleed, Anemia, UTI, Diabetes, Chronic Pain, Chronic Back Pain, Deep Vein Thrombosis Past Surgical History: cholecystectomy, orthopedic surgeries Patient History: (DM Type 2) Diabetes mellitus type 2 FATHER MOTHER Brother FH: stomach cancer MOTHER Alcohol Use: None Drug Use: none Lives with: Spouse Lives In: Home Occupation: retired Past Social History: Full CODE STATUS Review of Systems ROS 10 point review of systems was performed and unless noted above in HPI is negative for acute process/complaint. Physical Exam Physical Exam Physical Exam GENERAL: Awake, alert, oriented, GCS 15, no apparent distress, non-toxic appearing, answers questions, follows commands appropriately. HEENT: Atraumatic, normocephalic, pupils equal, extraocular muscles intact, sclerae anicteric, mucus membranes moist, oropharynx is clear, no stridor. NECK: supple, full active range of motion, trachea midline, no thyromegaly, no lymphadenopathy, no JVD. CARDIOVASCULAR: regular rate/rhythm, no murmurs/gallops/rubs, Pulses are 2+ in all extremities and symmetric. Capillary refill less than 2 seconds. PULMONARY: Nonlabored, good air movement ,no respiratory distress, speaking in full sentences, clear to auscultation bilaterally, no wheezing, no ronchi, no rales, no accessory muscle use. GASTROINTESTINAL: Soft, non-tender, non-distended, normal active bowel sounds, no organomegaly, no pulsatile masses, no CVA tenderness. NEUROLOGIC: Lucid with normal mental status. Normal facial symmetry. Moves all extremities symmetrically and with purpose. No truncal ataxia. Speech is fluid without evidence of dysarthria or aphasia, no focal deficits appreciated. MUSCULOSKELETAL: There is full range of motion of all extremities. There is no joint pain or joint swelling or joint erythema. There is no muscle pain or tenderness or swelling. EXTREMITIES: warm, well-perfused, no cyanosis, no clubbing, no edema, no acute deformities. Skin: warm, dry, no rashes or lesions, no jaundice, no petechiae orpurpura. No ecchymosis. PSYCHIATRIC: Normal affect, normal insight, normal concentration. Focused exam: [] Progress Results/Orders Results/Orders Orders - MAURICIO TRIPATHI DO Culture Blood (01/21/25 21:14) Chest,Single View (01/21/25 22:01) Hs Troponin I W Calculations (01/21/25 23:14) Lactic,2hr (01/21/25 23:14) Completed Orders - MAURICIO TRIPATHI DO Cbc/Diff (01/21/25 21:14) ESR (01/21/25 21:14) C-Reactive Protein (01/21/25 21:14) Chest,Single View (01/21/25 22:01) PBNP (01/21/25 21:14) CMP (01/21/25 21:14) Hs Troponin I W Calculations (01/21/25 21:14) Lacticsepsis (01/21/25 21:14) Vital Signs 01/21/25 01/21/25 21:36 22:38 Temp 98.1 98.1 Pulse 101 104 Resp 20 21 B/P (MAP) 102/61 150/88 (108) Pulse Ox 95 O2 Flow Rate 2.0 2.0 Laboratory Tests Test 01/21/25 21:44 01/21/25 23:22 White Blood Count 10.4 Red Blood Count 4.65 L Hemoglobin 13.2 L Hematocrit 40.5 L Mean Corpuscular Volume 87.1 Mean Corpuscular Hemoglobin 28.5 Mean Corpuscular Hemoglobin Concent 32.7 L Red Cell Distribution Width 14.7 H Platelet Count 195 Mean Platelet Volume 8.6 Neutrophils (%) (Auto) 77.5 H Lymphocytes (%) (Auto) 12.0 L Monocytes (%) (Auto) 10.0 Eosinophils (%) (Auto) 0.1 Basophils (%) (Auto) 0.4 Neutrophils # (Auto) 8.1 H Lymphocytes # (Auto) 1.2 Monocytes # (Auto) 1.0 H Eosinophils # (Auto) 0.0 Basophils # (Auto) 0.0 CBC Comment Erythrocyte Sedimentation Rate 44 H Sodium Level 138 Potassium Level 4.6 Chloride Level 102 Carbon Dioxide Level 28.6 Anion Gap 7 L Blood Urea Nitrogen 25 H Creatinine 1.42 H Estimated GFR/1.73 m2 48 BUN/Creatinine Ratio 17.6 Glucose Level 264 H Lactic Acid Level 2.4 H Calcium Level 8.8 Total Bilirubin 0.3 Aspartate Amino Transf (AST/SGOT) 14 Alanine Aminotransferase (ALT/SGPT) 21 Alkaline Phosphatase 57 Troponin I High Sensitivity 12 C-Reactive Protein 13.33 H Pro-B-Type Natriuretic Peptide 2136 H Total Protein 6.8 Albumin 2.6 L Globulin 4.2 Albumin/Globulin Ratio 0.6 L Chemistry Comments Medical Decision Making Findings Facility Status: ED Holds, RME process The plan was discussed with the patient, who demonstrates clear understanding of the plan and is in agreement with the plan unless otherwise noted in the chart. All questions have been answered, all concerns were addressed unless otherwise documented. I was available throughout their ED stay for frequent reassessment and questions. Differential Diagnoses (considered and possible or likely): [Feared condition not found, pneumonia, bronchitis] ??Differential Diagnoses (considered and unlikely, not requiring evaluation currently): [He has no somatic complaints. ACS is unlikely.] MDM Data Please see [facility] for the following: Independent Historians and external Records Review. Historian: [Patient] Independent Historians: ?[EMS] Medication Management: [Reviewed medication list] Social History and determinants: [Reviewed] Please see the body of the note for the following: Any independent interpretations of ECG, imaging studies. All vitals signs/haemodynamics, ordered tests were independently reviewed and interpreted by myself. Nursing triage complaint and vitals reviewed, additional nursing notes were reviewed as available and I agree unless otherwise noted or documented in contradiction in the chart Vital Signs: Independently reviewed Labs: Independently interpreted Imaging: Independently interpreted Old Medical Records: Independently reviewed, see HPI for relevant summary and information Pulse Oximetry: [94% on room air] interpreted as [normal on room air] by me Additionally notably showing: [Intermittently tachycardic. Workup notable for elevated BNP. Already on torsemide] Tests considered but not ordered include: [Advanced imaging does not appear to be necessary] Social Determinants of Health Impact: Patient was evaluated in [facility] [place] to healthcare due to below par ratio of patient to medical providers. [] Comorbid Conditions Impacting Present Evaluation and Care/Treatment: [Multiple, see list] Management Discussions with other Healthcare Providers: [Non] Treatment and Disposition Medication Management (Given or considered): []. See EMR for details Consideration for Hospitalization/Escalation/Deescalation of Care: Admission for observation has been considered, [however the patient is able to tolerate p.o., their symptoms are controlled, they are able to rely on oral medications, and their chief complaint/diagnosis can be managed on outpatient basis.] ?ED Course:?[No evidence of pneumonia on the chest x-ray. Elevated BNP consistent with a known history of CHF not hypoxic with a sat require admission] ?Shared decision making: Patient is hemodynamically stable for discharge home with follow with their primary care provider. [ ] Specific and cautious return precautions provided and discussed with full understanding. Any incidental fin dings were also discussed and follow up recommendations given. [] All questions answered. Patient/family were able to verbalize back return precautions. Patient/family agree to plan. Copies of imaging and laboratory studies were provided. Code status:?FULL Please see the full Electronic Medical Record for full details of nursing documentation, medications list, other records of complete past medical history and conditions, vital signs, laboratory studies, and any radiologic study interpretations by radiologists. Portions of this note were completed using [employer] dictation software and as a result there may exist minor errors in sp ting. I have reviewed elements of past family and social history and agree as included in note. Departure Disposition: 01 HOME / SELF CARE / HOMELESS Impression: Primary Impression: Congestive heart failure Condition: Stable Discharge Instructions: Heart Failure, Diagnosis Referrals: NO PRIMARY CARE PROVIDER (PCP) Education Educated: Patient Educated regarding: diagnosis, treatment, prognosis, need for follow up Signature Scribe Signature: No scribe Attestation: This note accurately reflects clinical decisions, work performed by myself, Mauricio Tripathi, MAURICIO WILSON DO January 21, 2025 21:24
[2025-01-21 21:53] LABS: BASOPHILS % (AUTO) 0.4 % (0-1); EOSINOPHILS % (AUTO) 0.1 % (0-6); HEMATOCRIT 40.5 % (42.0-52.0); HEMOGLOBIN 13.2 g/dl (14.0-17.9); LYMPHOCYTES # (AUTO) 1.2 X10'3 (1.1-4.8); MEAN CORPUSCULAR HEMOGLOBIN 28.5 PG (27.0-31.0); MEAN CORPUSCULAR HGB CONC 32.7 g/dL (33.0-36.5); MEAN CORPUSCULAR VOLUME 87.1 FL (78-98); MEAN PLATELET VOLUME 8.6 FL (7.4-10.4); NEUTROPHILS # (AUTO) 8.1 X10'3 (1.8-7.7); NEUTROPHILS % (AUTO) 77.5 % (42-75); PLATELET COUNT 195 X10'3 (140-440); RED BLOOD COUNT 4.65 X10'6 (4.70-6.10); RED CELL DISTRIBUTION WIDTH 14.7 % (11.5-14.5); WHITE BLOOD COUNT 10.4 X10'3 (4.5-11.0)
[2025-01-21 22:08] LABS: ALANINE AMINOTRANSFERASE 21 U/L (12-78); ALBUMIN 2.6 G/DL (3.4-5.0); ALBUMIN/GLOBULIN RATIO 0.6 (1.1-1.5); ALKALINE PHOSPHATASE 57 IU/L (46-116); ANION GAP 7 (8-16); ASPARTATE AMINO TRANSFERASE 14 U/L (10-37); BILIRUBIN,TOTAL 0.3 MG/DL (0.1-1.0); BLOOD UREA NITROGEN 25 MG/DL (7-18); BUN/CREATININE RATIO 17.6 (10.0-20.0); CALCIUM 8.8 MG/DL (8.5-10.1); CHLORIDE 102 MMOL/L (99-107); CREATININE 1.42 MG/DL (0.60-1.10); GLUCOSE 264 MG/DL (70-104); POTASSIUM 4.6 MMOL/L (3.5-5.1); SODIUM 138 MMOL/L (135-145); TOTAL CARBON DIOXIDE 28.6 MMOL/L (24-32); TOTAL PROTEIN 6.8 G/DL (6.4-8.2); eCRCL 51 ML/MIN; eGFR 48 ML/MIN
[2025-01-21] MEDS ORDERED: LOSA-415 PO (22:09)
[2025-01-21] MEDS ORDERED: LANTUS SUBCUT (22:09)
[2025-01-21] MEDS ORDERED: LEVO-65 PO (22:09)
[2025-01-21] MEDS ORDERED: BISA10SU11 RC (22:09)
[2025-01-21] MEDS ORDERED: BISA-155 PO (22:09)
[2025-01-21] MEDS ORDERED: GLIM1TAB57 PO (22:09)
[2025-01-21] MEDS ORDERED: ASPI-1265 PO (22:09)
--- NOTE | 2025-01-21 22:11 | RADIOLOGY REPORT ---
CHEST RADIOGRAPH Indication: Suspected pneumonia Technique: Single frontal view of the chest was obtained Comparison: DI CHEST,SINGLE VIEW on DOS: 01/13/25, DI CHEST,SINGLE VIEW on DOS: 10/16/24, DI CHEST,SING LE VIEW on DOS: 10/13/24 FINDINGS: Lines and Tubes: None Lungs: No focal consolidation. Pleura: No effusion. No pneumothorax. Cardiomediastinal contours: Unremarkable Bones: No acute osseous abnormality. IMPRESSION: 1. No acute cardiopulmonary disease.
[2025-01-21 22:15] LABS: C-REACTIVE PROTEIN 13.33 MG/DL (0.0-0.5); PRO BRAIN NATRIURETIC PEPTIDE 2136 PG/ML (0-450)
[2025-01-21] MEDS ORDERED: PRED5TAB PO (22:19)
[2025-01-21] MEDS ORDERED: MAGN400O6 PO (22:19)
[2025-01-21] MEDS ORDERED: INSU100V49 (22:19)
[2025-01-21] MEDS ORDERED: NA P230E RC (22:19)
[2025-01-21] MEDS ORDERED: MAG355OR18 PO (22:19)
[2025-01-21] MEDS ORDERED: ONDA-103 PO (22:19)
[2025-01-21] MEDS ORDERED: ACET-890 PO (22:19)
[2025-01-21 23:53] VITALS: TEMP 98.1
[2025-01-22 00:36] VITALS: BP 106/76; PULSE 107; RESP 22; O2SAT 94
--- NOTE | 2025-01-22 06:57 | ELECTROCARDIOGRAPH REPORT ---
[facility] Test Date: 2025-01-21 Test Time: 21:38:07 Pat Name: MADISON REILLY Department: EMERGENCY ROOM Room: Gender: M Transportation Program Director: JONAH : 1950 Requested By: SHARON TRIPATHI Order Number: [id number] Reading MD: Dr. Carlos Heredia Measurements Intervals [place] Rate: 101 P: 258 FL: 184 QRS: -57 QRSD: 161 T: 46 QT: 364 QTc: 472 Interpretive Statements Sinus or ectopic atrial tachycardia RBBB and LAFB Inferior infarct, acute Lateral leads are also involved Electronically Signed On 01-22-2025 17:20:[address] Carlos Heredia Please click the below link to view image of tracing.
== END 2025-01-22 00:43 | disposition home or self-care (01) ==
LOC: ER 21:10
DX: I50.9 Heart failure, unspecified (principal); E11.9 Type 2 diabetes mellitus without complications; E78.00 Pure hypercholesterolemia, unspecified; Z88.5 Allergy status to narcotic agent; Z90.49 Acquired absence of other specified parts of digestive tract; Z88.8 Allergy status to other drugs, medicaments and biological substances; Z79.82 Long term (current) use of aspirin
CPT/HCPCS: 36415; 71045; 80053; 83605; 83880; 84484; 85025; 85651; 86140; 87040; 93005; 99285